=== PATIENT | female | born 1950 | race Caucasian/White ===

== ENCOUNTER 2020-08-31 09:52 | Outpatient (REF) | payer OTHER, SELFPAY ==
--- NOTE | ~2020-08-31 | US_ITS ---
EXAMINATION: US DIAGNOSTIC ULTRASOUND BREAST, RIGHT CLINICAL INFORMATION: Short interval six-month follow-up probable benign complicated cyst mid medial right breast. COMPARISON: Targeted right breast ultrasound 03/02/2020, mammography 02/17/2020 and 10/03/2018. TECHNIQUE: Ultrasound right breast is targeted to the medial aspect. Grayscale imaging and color Doppler are performed without and with harmonics. FINDINGS: The bilobed circumscribed complicated cyst with internal echoes is similar in size and contour to prior study. There is no increasing size or interval solid component. No associated internal or peripheral color flow. There is some increased through-transmission of sound at real-time imaging. Finding will be reassessed with ultrasound at time of annual bilateral mammography, due in 6 months. Results are provided to the patient at time of visit by the technologist. US/US breast RT limited IMPRESSION: Stable circumscribed bilobed nodule medial right breast, probable complicated cyst. ASSESSMENT: BI-RADS 3: Probably Benign RECOMMENDATION: Targeted right breast ultrasound at time of annual bilateral mammography, due in 6 months. This patient's information was entered into a reminder system with a target due date for their next mammogram.
== END 2020-08-31 09:53 | disposition home or self-care (01) ==
LOC: HO.MAMMO 09:52
PROVIDERS: PCP Family Medicine; Visit Provider Family Medicine
DX: N60.01 Solitary cyst of right breast (principal); R92.2 Inconclusive mammogram
CPT/HCPCS: 76642

== ENCOUNTER 2021-02-28 12:51 | Outpatient (REF) | payer OTHER, SELFPAY ==
--- NOTE | ~2021-02-28 | MM_ITS ---
EXAMINATION: MM SCREENING DIGITAL BREAST TOMOSYNTHESIS, BILATERAL CLINICAL INFORMATION: Screening. Asymptomatic. Probable complicated cyst medial right breast on prior targeted right breast ultrasound. The lifetime risk of breast cancer based on the Tyrer-Cuzick Model is 3%. COMPARISON: Mammography: 02/17/2020, 10/03/2018, 09/11/2017; right breast ultrasound 08/31/2020, 03/02/2020. TECHNIQUE: Digital breast tomosynthesis is performed in both the craniocaudal and mediolateral oblique views along with computer-aided detection (CAD). Synthesized 2D images are generated from the tomosynthesis. FINDINGS: There are scattered areas of fibroglandular density (ACR BI-RADS breast composition Category b). A bilobed complicated cyst mid medial right breast is substantially decreased from prior exam 02/17/2020 10 consistent with benign nodule. The remainder of the bilateral breasts are similar to prior studies. There is no significant mass, architectural abnormality, developing density, or abnormal calcifications. The axilla and skin contours are unremarkable. MM/MM tomosynthesis screening BI IMPRESSION: 1. No mammographic evidence of malignancy. 2. The known small complicated cyst mid medial right breast is decreased in size. ASSESSMENT: BI-RADS 2: Benign RECOMMENDATION: Routine annual mammography screening. This patient's information was entered into a reminder system with a target due date for their next mammogram.
== END 2021-02-28 12:52 | disposition home or self-care (01) ==
LOC: HO.MAMMO 12:51
PROVIDERS: PCP Nurse Practitioner Primary Care; Visit Provider Family Medicine
DX: Z12.31 Encounter for screening mammogram for malignant neoplasm of breast (principal)
CPT/HCPCS: 77063; 77067